=== PATIENT | female | born 2000 | race African-American/Black ===

== ENCOUNTER 2021-07-05 08:40 | Emergency (ER) | payer OTHER ==
[~2021-07-05] VITALS: Ht 167.6 cm; Wt 57.0 kg
[2021-07-05 09:29] LABS: HEMATOCRIT. 41.3 % (36.0-48.0); HEMOGLOBIN. 13.2 g/dL (12.0-16.0); MEAN CORPUSCULAR HEMOGLOBIN 32.6 pg (28.0-32.0); MEAN CORPUSCULAR VOLUME 102.3 fL (81.0-99.0); MEAN PLATELET VOLUME 7.9 fl (7.4-10.4); PLATELET 329 x1000/uL (130-400); RED BLOOD CELL COUNT 4.04 mill/uL (4.2-5.4); RED CELL DISTRIBUTION WIDTH 13.8 % (11.6-14.6)
[2021-07-05 09:35] LABS: CHLORIDE 103 mEq/L (98-107)
[2021-07-05 09:39] LABS: ETHANOL BLOOD 86 mg/dL
[2021-07-05 09:47] LABS: CREATINE KINASE 120 IU/L (26-192)
[2021-07-05 09:48] LABS: HCG SCREEN NEGATIVE
[2021-07-05 10:29] LABS: PLATELET ESTIMATE NORMAL
[2021-07-05] MEDS ORDERED: SODIUM CHLORIDE 0.9% 1,000 ML IV NR (11:00)
[2021-07-05 12:52] LABS: CLARITY URINE CLEAR (CLEAR); COLOR URINE YELLOW (YELLOW); KETONES URINE NEGATIVE (NEGATIVE); LEUKOCYTE ESTERASE URINE NEGATIVE (NEGATIVE); NITRITE URINE NEGATIVE (NEGATIVE); OCCULT BLOOD URINE NEGATIVE (NEGATIVE); PROTEIN URINE 1+ (NEGATIVE); SPECIFIC GRAVITY URINE 1.018 (1.005-1.030); UROBILINOGEN URINE 0.2 E.U./dL (0.2-1.0)
[2021-07-05] MEDS ORDERED: NALO4SPR BOTHNSTRLS (16:59)
[2021-07-05 20:00] VITALS: BP 104/65
== END 2021-07-05 20:05 | disposition home or self-care (01) ==
LOC: ER 08:54 → EDBD 08:54 → ER 20:05
DX: T40.601A Poisoning by unspecified narcotics, accidental (unintentional), initial encounter (principal); Y92.488 Other paved roadways as the place of occurrence of the external cause
CPT/HCPCS: 36415; 71045; 80053; 80307; 80320; 80329; 81003; 82550; 82962; 83605; 84703; 85025; 93005; 99285; G0480

== ENCOUNTER 2021-11-14 14:52 | Emergency (ER) | payer OTHER ==
[~2021-11-14] VITALS: Ht 162.6 cm; Wt 50.0 kg
[~2021-11-14 14:52] MED LIST: NALO4SPR BOTHNSTRLS
[2021-11-14 14:58] VITALS: BP 134/91
== END 2021-11-14 22:04 | disposition left against medical advice (07) ==
LOC: ER 14:52
DX: Z53.21 Procedure and treatment not carried out due to patient leaving prior to being seen by health care provider (principal)